=== PATIENT | female | born 2000 | race Hispanic/Latino ===

== ENCOUNTER 2022-12-07 18:55 | Inpatient (IN) | payer BC ==
[~2022-12-07 18:55] MED LIST: Bupivacaine PF 0.5% 30 ML VIAL ONE
[2022-12-07 19:25] VITALS: BMI 29.2
[2022-12-07 19:56] LABS: Fetal Membranes Rupture RUPTURE DETECTED (No Rupture)
[2022-12-07] MEDS ORDERED: Lactated Ringer's 1,000 ML IV SCH (20:31)
[2022-12-07] MEDS ORDERED: Ondansetron PF 4 MG/2 ML Vial IVP PRN (20:31)
[2022-12-07] MEDS ORDERED: NS w/ Oxytocin 30 units 500 ML IV SCH ×2 (20:31)
[2022-12-07] MEDS ORDERED: Promethazine HCl 25 MG/ML VIAL IM PRN (20:31)
[2022-12-07] MEDS ORDERED: Lidocaine 1% (PF) 30 ML VIAL SC PRN (20:31)
[2022-12-07] MEDS ORDERED: hydrALAZINE 20 MG/ML VIAL SLOW IVP PRN (20:31)
[2022-12-07] MEDS ORDERED: Ibuprofen 800 MG TAB PO PRN (20:31)
[2022-12-07] MEDS ORDERED: Butorphanol Tartrate 1 MG/ML VIAL SLOW IVP PRN (20:31)
[2022-12-07] MEDS ORDERED: HYDROcodone/Acetaminophen 5/325 mg Tablet PO PRN ×2 (20:31)
[2022-12-07 21:15] LABS: Mean Corpuscular HGB CONC 34.2 g/dL (32.0-36.0); Mean Corpuscular Hemoglobin 28.8 pg (27.0-33.0); Mean Corpuscular Volume 84.3 fl (81.6-98.3); Mean Platelet Volume 10.2 fl (7.4-10.4); Platelet Count 245 10x3/uL (150-450); RBC Distribution Width 13.1 % (11.5-14.5); Red Blood Cell (RBC) Count 4.51 10x6/uL (3.90-5.03); White Blood Cell (WBC) Count 9.9 10x3/uL (3.5-10.5)
[2022-12-07 21:52] LABS: SARS-CoV-2 NAA Rapid Test Not Detected (NotDetected)
[2022-12-07 22:54] LABS: HBSAg Index 0.33 S/CO (0-0.99); Hep B Surf Ag Non-Reactive S/CO (NonReactive)
[2022-12-07 22:55] LABS: Syphilis Antibody Nonreactive (Nonreactive); Syphilis Antibody Index 0.04 S/CO (<1.00 Non-Reactive)
[2022-12-08] MEDS ORDERED: Fentanyl 2 mcg/Bup 0.1% Cadd 100 ML ONE (07:55)
[2022-12-08] MEDS ORDERED: diphenhydrAMINE 50 MG/ML VIAL IVP PRN (09:36)
[2022-12-08] MEDS ORDERED: Moisturizing Cream (Eucerin) 113 GM JAR TOP PRN (09:36)
[2022-12-08] MEDS ORDERED: Acetaminophen 325 MG TAB PO PRN (09:36)
[2022-12-08] MEDS ORDERED: Ondansetron PF 4 MG/2 ML Vial IVP PRN ×2 (09:36→10:36)
[2022-12-08] MEDS ORDERED: ePHEDrine Sulfate 50 MG/10 ML VIAL SLOW IVP PRN (09:36)
[2022-12-08] MEDS ORDERED: Promethazine HCl 25 MG/ML VIAL IM PRN (09:36)
[2022-12-08] MEDS ORDERED: Naloxone HCl 0.4 mg/ml Vial IVP PRN ×2 (09:36)
[2022-12-08] MEDS ORDERED: Lactated Ringer's 500 ML IV PRN (09:43)
[2022-12-08] MEDS ORDERED: Fentanyl 2 mcg/Bupivacaine 0.1% Cassette 100 ML EPIDURAL SCH (09:45)
[2022-12-08] MEDS ORDERED: Communication Order-Pharmacy FS SCH (09:45)
[2022-12-08] MEDS ORDERED: Milk Of Magnesia 30 ML UDCUP PO PRN (10:36)
[2022-12-08] MEDS ORDERED: Bisacodyl 10 MG SUPP PR PRN (10:36)
[2022-12-08] MEDS ORDERED: Lanolin Ointment 7 GM TUBE TOP PRN (10:36)
[2022-12-08] MEDS ORDERED: Benzocaine-Menthol 82.5 ML CAN TOP PRN (10:36)
[2022-12-08] MEDS ORDERED: Preparation H Ointment 28 GM TUBE PR PRN (10:36)
[2022-12-08] MEDS ORDERED: NS w/ Oxytocin 30 units 500 ML IV SCH (10:36)
[2022-12-08] MEDS ORDERED: diphenhydrAMINE 25 MG CAP PO PRN (10:36)
[2022-12-08] MEDS ORDERED: hydrALAZINE 20 MG/ML VIAL SLOW IVP PRN (10:36)
[2022-12-08] MEDS ORDERED: Boostrix 0.5 ML (Tdap) VIAL (>/=7 yrs of age) IM ONE (10:36)
[2022-12-08] MEDS ORDERED: HYDROcodone/Acetaminophen 5/325 mg Tablet PO PRN ×2 (10:36)
[2022-12-08] MEDS ORDERED: Methylergonovine 0.2 MG/ML VIAL ONE (10:51)
[2022-12-08] MEDS ORDERED: Carboprost 250 MCG/ML AMP ONE (10:51)
[2022-12-08] MEDS ORDERED: Misoprostol 200 MCG TAB ONE (10:51)
[2022-12-08] MEDS ORDERED: Tranexamic Acid 1,000 MG/10 ML VIAL ONE (10:52)
[2022-12-08] MEDS ORDERED: Diphenoxylate HCl/Atropine Tablet PO PRN (11:19)
[2022-12-08] MEDS ORDERED: Carboprost 250 MCG/ML AMP IM SCH (11:30)
[2022-12-08] MEDS: Ibuprofen 800 MG TAB PO SCH ×2 (12:52→21:16)
[2022-12-08] MEDS: Ferrous Sulfate 325 MG TAB PO SCH (17:08)
[2022-12-08] MEDS: Docusate 100 MG CAP PO SCH (21:16)
[2022-12-09] MEDS: Ibuprofen 800 MG TAB PO SCH ×2 (05:13→14:42)
[2022-12-09 08:19] VITALS: BP 95/54; TEMP 98.9
[2022-12-09] MEDS: Docusate 100 MG CAP PO SCH (08:21)
[2022-12-09] MEDS: Ferrous Sulfate 325 MG TAB PO SCH (08:24)
[2022-12-09] MEDS ORDERED: Prenatal Vitamin 1 TAB PO SCH (09:00)
[2022-12-09 10:27] LABS: Hemoglobin 10.6 g/dL (12.0-15.5)
== END 2022-12-09 15:01 | disposition home or self-care (01) | DRG 806 ==
LOC: CSHLD/OP 18:55 → CSHLD 21:00 → CSHPP 12-08 12:40
PROVIDERS: ADMIT Obstetrics & Gynecology; ATTEND Obstetrics & Gynecology
PROC: 10E0XZZ Delivery of Products of Conception, External Approach (ICD-10-PCS; principal; 2022-12-08)
PROC: 0HQ9XZZ Repair Perineum Skin, External Approach (ICD-10-PCS; 2022-12-08)
DX: O69.81X0 Labor and delivery complicated by cord around neck, without compression, not applicable or unspecified (principal); O72.2 Delayed and secondary postpartum hemorrhage; Z37.0 Single live birth; Z3A.39 39 weeks gestation of pregnancy; Z20.822 Contact with and (suspected) exposure to COVID-19; O70.0 First degree perineal laceration during delivery
CPT/HCPCS: 36415; 84112; 85014; 85018; 85027; 86780; 86850; 86900; 86901; 87340; 99285; J2210; S0020; U0002

== ENCOUNTER 2025-09-25 19:13 | Inpatient (IN) | payer BC, OTHER ==
[2025-09-25 19:48] VITALS: BMI 30.9
[2025-09-25] MEDS ORDERED: Ondansetron PF 4 MG/2 ML Vial IVP PRN (20:29)
[2025-09-25] MEDS ORDERED: Acetaminophen 500 MG TAB PO PRN (20:29)
[2025-09-25] MEDS ORDERED: hydrALAZINE 20 MG/ML VIAL SLOW IVP PRN (20:29)
[2025-09-25] MEDS ORDERED: Ibuprofen 800 MG TAB PO PRN (20:29)
[2025-09-25] MEDS ORDERED: Carboprost 250 MCG/ML AMP IM PRN (20:29)
[2025-09-25] MEDS ORDERED: HYDROcodone/Acetaminophen 5/325 mg Tablet PO PRN ×2 (20:29)
[2025-09-25] MEDS ORDERED: Lidocaine 1% (PF) 30 ML VIAL SC PRN (20:29)
[2025-09-25 20:51] LABS: Hematocrit 36.2 % (34.9-44.5); Hemoglobin 12.1 g/dL (12.0-15.5); Mean Corpuscular Hemoglobin 27.3 pg (27.0-33.0); Mean Corpuscular Volume 81.7 fL (81.6-98.3); Platelet Count 296 10x3/uL (150-450); Red Blood Cell (RBC) Count 4.43 10x6/uL (3.90-5.03); White Blood Cell (WBC) Count 9.54 10x3/uL (3.5-10.5)
[2025-09-25 21:19] LABS: Hep B Surf Ag - L&D Non-Reactive S/CO (NonReactive)
[2025-09-25 21:21] LABS: Syphilis Antibody Index 0.05 S/CO (<1.00 Non-Reactive)
[2025-09-25] MEDS: Penicillin G Potassium 5 MILL.UNITS in Sodium Chloride 0.9% 100 ML IVPB SCH (22:11)
[2025-09-25] MEDS: Oxytocin 30 units/NS 500 ML 500 ML IV SCH (22:11)
[2025-09-26] MEDS: Penicillin G 2.5 MILL.units 2.5 MILL.UNITS in Premix 1 BAG IVPB SCH (03:03)
[2025-09-26] MEDS: fentaNYL/Ropivacaine Epidural 100 ML ONE (08:10)
[2025-09-26] MEDS ORDERED: Acetaminophen 325 MG TAB PO PRN (10:34)
[2025-09-26] MEDS ORDERED: Ondansetron PF 4 MG/2 ML Vial IVP PRN ×2 (10:34→15:45)
[2025-09-26] MEDS ORDERED: diphenhydrAMINE 50 MG/ML VIAL IVP PRN (10:34)
[2025-09-26] MEDS ORDERED: fentaNYL 2 mcg/Ropivacaine 0.2% Epidural 100 ML CADD EPIDURAL SCH (10:45)
[2025-09-26] MEDS ORDERED: Communication Order-Pharmacy FS SCH (10:45)
[2025-09-26] MEDS: Oxytocin 30 units/NS 500 ML 500 ML IV SCH (13:59)
[2025-09-26] MEDS: Tranexamic Acid 1,000 MG/10 ML VIAL IVP PRN (14:54)
[2025-09-26] MEDS: Methylergonovine 0.2 MG/ML VIAL IM PRN (14:55)
[2025-09-26] MEDS ORDERED: Preparation H Ointment 28 GM TUBE PR PRN (15:45)
[2025-09-26] MEDS ORDERED: Milk Of Magnesia 30 ML UDCUP PO PRN (15:45)
[2025-09-26] MEDS ORDERED: hydrALAZINE 20 MG/ML VIAL SLOW IVP PRN (15:45)
[2025-09-26] MEDS ORDERED: diphenhydrAMINE 25 MG CAP PO PRN (15:45)
[2025-09-26] MEDS ORDERED: Bisacodyl 10 MG SUPP PR PRN (15:45)
[2025-09-26] MEDS ORDERED: HYDROcodone/Acetaminophen 5/325 mg Tablet PO PRN ×2 (15:45)
[2025-09-26] MEDS ORDERED: Benzocaine-Menthol 82.5 ML CAN TOP PRN (15:45)
[2025-09-26] MEDS ORDERED: Lanolin Ointment 7 GM TUBE TOP PRN (15:45)
[2025-09-26] MEDS: Ferrous Sulfate 325 MG TAB PO SCH (17:21)
[2025-09-26] MEDS: Ibuprofen 800 MG TAB PO SCH (17:21)
[2025-09-26] MEDS ORDERED: Bupivacaine HCl 0.5%/Epinephrine 1:200,000/PF 30 ml Vial ONE (19:01)
[2025-09-26] MEDS ORDERED: Bupivacaine 0.25% HCL 30 ML VIAL ONE (19:01)
[2025-09-27 07:58] VITALS: BP 97/54; TEMP 97.9
== END 2025-09-27 16:15 | disposition home or self-care (01) | DRG 807 ==
LOC: CSHLD 19:13 → CSHPP 09-26 16:10
PROVIDERS: ADMIT Obstetrics & Gynecology; ATTEND Obstetrics & Gynecology
PROC: 10E0XZZ Delivery of Products of Conception, External Approach (ICD-10-PCS; principal; 2025-09-25)
DX: O99.824 Streptococcus B carrier state complicating childbirth (principal); Z37.0 Single live birth; Z3A.39 39 weeks gestation of pregnancy
CPT/HCPCS: 85027; 86780; 86850; 86900; 86901; 87340; J0665; J2210; J2540; J2590